=== PATIENT | female | born 1980 | race Caucasian/White ===

== ENCOUNTER 2018-09-25 02:03 | Emergency (ER) | payer SELFPAY ==
[2018-09-25] MEDS ORDERED: HYDROCODONE/APAP 5/325 TAB PO ONE (03:05)
[2018-09-25] MEDS ORDERED: AMOXICILLIN/CLAVULANATE POT 875/125 MG TAB PO ONE ×2 (03:05→03:56)
--- NOTE | 2018-09-25 03:09 | EDPHY ---
H & P Stated Complaint: right ear pain since afternoon and getting worse Time Seen by Provider: 09/25/18 03:06 HPI/ROS: HPI CHIEF COMPLAINT: Right ear pain. HISTORY OF PRESENT ILLNESS: 37-year-old female otherwise healthy without any significant medical history presents emergency room with right ear pain. Patient states she started having some discomfort 3 days ago however it has progressively gotten worse. States she initially had congestion with a sore throat however this is progressed to right ear discomfort. She denies any further sore throat or trouble swallowing, denies vomiting main complaint throbbing right ear pain. Current level pain 6/10. Patient states she put tea tree oil in her ear canal on the right. Also took ibuprofen. Past Medical History: Denies medical history Past Surgical History: Denies surgical history Social History: Denies drugs alcohol tobacco. Family History: Noncontributory ROS REVIEW OF SYSTEMS: 10 Systems were reviewed and negative with the exception of the elements mentioned in the history of present illness. Exam Constitutional triage nursing summary reviewed, vital signs reviewed, awake/ alert. Eyes normal conjunctivae and sclera, EOMI, PERRLA. HENT right TM is erythematous and bulging, there is some blood on the TM concerning for possible perforation, I do not visualize a hole, left TM normal, no mastoid tenderness on exam. posterior pharynx normal normal inspection, atraumatic, moist mucus membranes, no epistaxis, neck supple/ no meningismus, no raccoon eyes. Respiratory clear to auscultation bilaterally, normal breath sounds, no respiratory distress, no wheezing. Cardiovascular rate normal, regular rhythm, no murmur, no edema, distal pulses normal. Gastrointestinal soft, non-tender, no rebound, no guarding, normal bowel sounds, no distension, no pulsatile mass. Genitourinary no CVA tenderness. Musculoskeletal no midline vertebral tenderness, full range of motion, no calf swelling, no tenderness of extremities, no meningismus, good pulses, neurovascularly intact. Skin pink, warm, & dry, no rash, skin atraumatic. Neurologic awake, alert and oriented x 3, AAOx3, moves all 4 extremities equally, motor intact, sensory intact, CN II-XII intact, normal cerebellar, normal vision, normal speech. Psychiatric normal mood/affect. Heme/Lymph/Immune no lymphadenopathy. Differential Diagnosis: Includes but is not limited to in a particular order acute otitis media, otitis media with perforation otitis externa, malignant otitis, mastoiditis Medical Decision Making: Plan for this patient oral [place] for pain control, started on Augmentin. Will refer to ENT. Re-evaluation: Explained to the patient given her erythematous bulging right TM and some blood present there is concern for TM perforation. I do recommend she has close follow up with ENT. I will provide follow-up care instructions for her and referral. 3:49 a.m. patient re-evaluated pain improved after [place] oral. Highly recommend patient follows up with ENT. Augmentin prescription provided in 1st dose given in the emergency room. Prescription for ibuprofen 800 mg Prescription provided for otic Cipro drops. Return precautions discussed with the patient understands return emergency room if there is worsening pain questions or concerns she understands and is comfortable this plan. Understands she needs to follow up with ENT. - Personal History LMP (Females 10-55): 1-7 Days Ago Current Tetanus/Diphtheria Vaccine: Unsure - Medical/Surgical History Hx Asthma: No Hx Chronic Respiratory Disease: No Hx Diabetes: No Hx Cardiac Disease: No Hx Renal Disease: No Hx Cirrhosis: No Hx Alcoholism: No Hx HIV/AIDS: No Hx Splenectomy or Spleen Trauma: No Other PMH: denies - Social History Smoking Status: Never smoked Constitutional: Initial Vital Signs Temperature (C) 36.8 C 09/25/18 02:07 Heart Rate 78 09/25/18 02:07 Respiratory Rate 18 09/25/18 02:07 Blood Pressure 121/77 H 09/25/18 02:07 O2 Sat (%) 96 09/25/18 02:07 O2 Delivery Mode Room Air Allergies/Adverse Reactions: No Known Allergies Allergy (Unverified 09/25/18 02:07) Home Medications: Medication Instructions Recorded Amoxicillin/Clavulanate Pot 875 mg PO BID #14 tab 09/25/18 [Augmentin 875 MG TAB (*)] Ciprofloxacin/Hydrocortisone 10 ml OT TID #1 drops.susp 09/25/18 [Cipro Hc Otic Suspension] Ibuprofen [Motrin (*)] 800 mg PO Q6-8PRN #10 tab 09/25/18 Medical Decision Making - Data Points Medications Given: Discontinued Medications Hydrocodone Bitart/Acetaminophen ([place] 5/325) 1 tab PO EDNOW ONE Stop: 09/25/18 03:06 Last Admin: 12/25/18 03:10 Dose: 1 tab Amoxicillin/Clavulanate Potassium (Augmentin 875mg) 875 mg PO EDNOW ONE PRN Reason: Protocol Stop: 09/25/18 03:06 Last Admin: 09/25/18 03:10 Dose: 875 mg Departure - Departure Disposition: Home, Routine, Self-Care Clinical Impression: Otitis media Condition: Good Instructions: Ear Infection (ED) Additional Instructions: 1. Recommend antibiotics complete your course 2. Follow up with ENT. 3. Return to the emergency room if worsening pain, high fever, not doing well. 4. Oral Antibiotics as prescribed, topical drops as prescibed. 5. PLEASE FOLLOW UP WITH ENT. Referrals: NONE *PRIMARY CARE P,. [Primary Care Provider] - As per Instructions Brandyn Evans MD [Medical Doctor] - As per Instructions Prescriptions: Amoxicillin/Clavulanate Pot [Augmentin 875 MG TAB (*)] 875 mg PO BID #14 tab Ciprofloxacin/Hydrocortisone [Cipro Hc Otic Suspension] 10 ml OT TID #1 drops.susp Ibuprofen [Motrin (*)] 800 mg PO Q6-8PRN #10 tab
[2018-09-25] MEDS ORDERED: KETOROLAC 30 MG/1 ML SDV ONE (03:49)
[2018-09-25] MEDS ORDERED: KETOROLAC 30 MG/1 ML SDV IM ONE (03:52)
[2018-09-25] MEDS ORDERED: HYDROCOD/APAP 5/325 PREPACK#6 BTL TAKEHOME ONE (03:56)
[2018-09-25 04:08] VITALS: BP 124/69
[2018-09-25] MEDS ORDERED: ONDANSETRON DISINTEGRATING 4 MG TAB ONE (04:35)
[2018-09-25] MEDS ORDERED: ONDANSETRON DISINTEGRATING 4 MG TAB PO ONE (04:35)
== END 2018-09-25 05:02 | disposition home or self-care (01) ==
DX: H66.91 Otitis media, unspecified, right ear (principal)
CPT/HCPCS: J1885

== ENCOUNTER 2018-09-25 20:30 | Emergency (ER) | payer SELFPAY ==
[2018-09-25] MEDS ORDERED: KETOROLAC 30 MG/1 ML SDV IVP ONE (20:43)
[2018-09-25] MEDS ORDERED: ONDANSETRON 4 MG/2 ML VIAL IVP ONE (20:43)
[2018-09-25] MEDS ORDERED: NS 1,000 ML IV ONE (20:43)
--- NOTE | 2018-09-25 20:47 | EDPHY ---
H & P Stated Complaint: R ear pain since here last night now bleeding and nauseated Time Seen by Provider: 09/25/18 20:39 HPI/ROS: CHIEF COMPLAINT: Right ear pain, vomiting HISTORY OF PRESENT ILLNESS: 37-year-old female presents with severe right ear pain and vomiting. She was seen in this emergency department early this morning and diagnosed with right otitis media, possibly with perforation. She has bloody drainage from the right ear. She was placed on Augmentin and Vicodin. Vomits after each dose of Vicodin. Unable to tolerate oral antibiotics. REVIEW OF SYSTEMS: complete 10 point ROS reviewed and is negative except for the noted elements in the HPI - Personal History LMP (Females 10-55): Unknown - Medical/Surgical History Hx Asthma: No Hx Chronic Respiratory Disease: No Hx Diabetes: No Hx Cardiac Disease: No Hx Renal Disease: No Hx Cirrhosis: No Hx Alcoholism: No Hx HIV/AIDS: No Hx Splenectomy or Spleen Trauma: No Other PMH: denies - Social History Smoking Status: Never smoked Alcohol Use: Sober Drug Use: None Additional Social History: recently moved to [place] - Physical Exam Exam: General Appearance: Alert, tearful, crying loudly and anxious Eyes: Pupils equal and round, conjunctival injection ENT, Mouth: Right tympanic membrane retracted, no bloody drainage visualized, mucous membranes moist Neck: Normal inspection, no swelling or tenderness Respiratory: Lungs are clear to auscultation Cardiovascular: Regular rate and rhythm Neurological: A&O, nonfocal, normal gait Skin: Warm and dry, no rash Extremities: Normal inspection Psychiatric: anxious Constitutional: Initial Vital Signs Temperature (C) 36.7 C 09/25/18 20:35 Heart Rate 77 09/25/18 20:35 Respiratory Rate 24 H 09/25/18 20:35 Blood Pressure 137/84 H 09/25/18 20:35 O2 Sat (%) 100 09/25/18 20:35 O2 Delivery Mode Room Air Allergies/Adverse Reactions: No Known Allergies Allergy (Unverified 09/25/18 20:34) Home Medications: Medication Instructions Recorded Amoxicillin/Clavulanate Pot 875 mg PO BID #14 tab 09/25/18 [Augmentin 875 MG TAB (*)] Azithromycin [Zithromax] 250 mg PO DAILY #6 tab 09/25/18 Ciprofloxacin/Hydrocortisone 10 ml OT TID #1 drops.susp 09/25/18 [Cipro Hc Otic Suspension] Ibuprofen [Motrin (*)] 800 mg PO Q6-8PRN #10 tab 09/25/18 Medical Decision Making ED Course/Re-evaluation: This patient presents with a right otitis media and vomiting. Vomiting most likely secondary to Vicodin. Emotional distress seems out of proportion to illness. d/w pt, and examined carefully, no signs/sx of alternative etiology of sx. Hopefully, will feel better with treatment. IV normal saline 1 L, Zofran 4 mg and Rocephin 1 g IV given. Toradol 30 mg IV given for pain. Feels much better, nausea and pain resolving. Ready for d/c home. Requests ibuprofen and tylenol for home use; multiple concerns, all addressed. Will change abx to Zpak. Encouraged pt to f/u PCP. - Data Points Medications Given: Discontinued Medications Acetaminophen (Tylenol) 1,000 mg PO EDNOW ONE Stop: 09/25/18 22:07 Last Admin: 09/25/18 22:25 Dose: 1,000 mg Sodium Chloride (Ns) 1,000 mls @ 0 mls/hr IV EDNOW ONE; Wide Open PRN Reason: Protocol Stop: 09/25/18 20:44 Last Admin: 09/25/18 20:59 Dose: 1,000 mls Ceftriaxone Sodium/Dextrose (Rocephin 1 Gm (Premix)) 50 mls @ 100 mls/hr IV EDNOW ONE PRN Reason: Protocol Stop: 09/25/18 21:13 Last Admin: 09/25/18 21:05 Dose: 50 mls Ibuprofen (Motrin) 800 mg PO EDNOW ONE Stop: 09/25/18 22:07 Last Admin: 09/25/18 22:26 Dose: 800 mg Ketorolac Tromethamine (Toradol) 30 mg IVP EDNOW ONE Stop: 09/25/18 20:44 Last Admin: 09/25/18 21:05 Dose: 30 mg Ondansetron HCl (Zofran) 4 mg IVP EDNOW ONE Stop: 09/25/18 20:44 Last Admin: 09/25/18 21:04 Dose: 4 mg Ondansetron HCl (Zofran Odt 4 Mg Prepack#2) 1 btl TAKEHOME EDNOW ONE Stop: 09/25/18 21:02 Last Admin: 09/25/18 21:06 Dose: 1 btl Departure - Departure Disposition: Home, Routine, Self-Care Clinical Impression: Acute otitis media, Vomiting Condition: Good Instructions: Ear Infection (ED) Additional Instructions: You received Zofran for nausea, Toradol for pain and Rocephin for infection in the ED tonight. Zofran 4 mg tablet under the tongue every 6 hr as needed for nausea. Alternate ibuprofen and Tylenol every 3 hr for pain control. If the Augmentin continues to cause nausea and/or vomiting, discontinue Augmentin and take Zithromax instead. Take the next dose of antibiotic Monday evening. Stop taking Vicodin. Referrals: Petra Villa MD [Medical Doctor] - As per Instructions Prescriptions: Azithromycin [Zithromax] 250 mg PO DAILY #6 tab
[2018-09-25] MEDS ORDERED: ONDANSETRON 4MG PREPACK#2 BTL TAKEHOME ONE (21:01)
[2018-09-25] MEDS ORDERED: IBUPROFEN 600 MG TAB PO ONE (22:06)
[2018-09-25] MEDS ORDERED: ACETAMINOPHEN 325 MG TAB PO ONE (22:06)
[2018-09-25] MEDS ORDERED: IBUPROFEN 800 MG TAB PO ONE (22:14)
[2018-09-25] MEDS ORDERED: ACETAMINOPHEN 500 MG TAB ONE (22:15)
[2018-09-25 22:34] VITALS: BP 133/81
== END 2018-09-25 22:39 | disposition home or self-care (01) ==
DX: H66.91 Otitis media, unspecified, right ear (principal); R11.10 Vomiting, unspecified; E86.9 Volume depletion, unspecified; Z79.899 Other long term (current) drug therapy
CPT/HCPCS: 96365; J0696; J1885; J2405